=== PATIENT | male | born 1985 | race Caucasian/White ===

== ENCOUNTER 2020-11-26 16:25 | Outpatient (REF) | payer MEDICAID, SELFPAY ==
[2020-11-27 16:28] LABS: COVID-19 RT-PCR UVMMC Result Negative (Negative)
== END 2020-11-26 16:26 | disposition home or self-care (01) ==
LOC: NCHCN 16:25
PROVIDERS: PCP Internal Medicine; Visit Provider Internal Medicine
DX: Z20.822 Contact with and (suspected) exposure to COVID-19 (principal)
CPT/HCPCS: U0003

== ENCOUNTER 2023-05-11 13:13 | Outpatient (REF) | payer MEDICAID, SELFPAY ==
[2023-05-19 12:50] LABS: Amphetamine Negative ng/mL (Cutoff: 25); Amphetamines Interpretation Negative.; MDA (Ecstasy Metabolite) Negative ng/mL (Cutoff: 25); MDMA (Ecstasy) Negative ng/mL (Cutoff: 25); Methamphetamine Negative ng/mL (Cutoff: 25); Phentermine Negative ng/mL (Cutoff: 25); Pseudoephedrine/Ephedrine Negative ng/mL (Cutoff: 25)
== END 2023-05-11 13:14 | disposition home or self-care (01) ==
LOC: NCHCN 13:13
PROVIDERS: PCP Internal Medicine; Visit Provider Nurse Practitioner Family
DX: F90.0 Attention-deficit hyperactivity disorder, predominantly inattentive type (principal)
CPT/HCPCS: 80324; 80360

== ENCOUNTER 2023-06-11 15:41 | Outpatient (REF) | payer MEDICAID, SELFPAY ==
[2023-06-11 21:46] LABS: *AMPHETAMINES SCREEN URINE Negative (Negative); *BARBITURATES SCREEN URINE Negative (Negative); *BENZODIAZEPINES SCREEN URINE Negative (Negative); Cannabinoids THC Negative (Negative); Cocaine Screen,Urine Negative (Negative); METHADONE URINE SCREEN Negative (Negative); OPIATES URINE SCREEN Negative (Negative)
[2023-06-11 21:47] LABS: Tricyclic Antidepressants Negative (Negative)
[2023-06-19 02:29] LABS: Methylphenidate 249 ng/mL (Cutoff: 10); Ritalinic Acid 6227 ng/mL (Cutoff: 50)
== END 2023-06-11 15:42 | disposition home or self-care (01) ==
LOC: NCHCN 15:41
PROVIDERS: PCP Internal Medicine; Visit Provider Nurse Practitioner Family
DX: F90.8 Attention-deficit hyperactivity disorder, other type (principal); Z79.899 Other long term (current) drug therapy; Z51.81 Encounter for therapeutic drug level monitoring
CPT/HCPCS: 80307; 80360

== ENCOUNTER 2023-09-10 16:46 | Outpatient (REF) | payer MEDICAID, SELFPAY ==
--- OUTSIDE RECORDS SUMMARY | 2023-09-10 17:01 | XMS_ITS | Clinical Summary ---
Author Organization [facility] Address [address] [place] [address] Care Team Providers Care Manager Continuous Improvement Name Role Phone Unavailable Primary Care Provider Unavailabl e Social History Tobacco Use Types Packs/Day Years Used Date Smoking Tobacco: Never Assessed Interpersonal Safety Answer Date Record ed Physically Hurt Never 09/25/2019 Verbally Threaten Not on file 09/25/2019 Sex and Gender Information Value Date Recorded Sex Assigned at Not on file Gender Identity Not on file Sexual Orientation Not on file Plan of Treatment Health Maintenance Due Date Last Done Comments Hepatitis C Screen 1985 Hepatitis B Vaccine (1 of 3 - 19+ 3-dose series) 11/17 COVID-19 Vaccine (2022-24 season) 2022 Insurance Payer Benefit Plan / Group Subscriber ID Effective Dates Phone Address Type [place] [id number] 2021-Pres ent [address] [place] [address] [place]
--- OUTSIDE RECORDS SUMMARY | 2023-09-10 17:01 | XMS_ITS | Referral Summary ---
Author Organization [facility] Address [address] [place] [address] Care Team Providers Care Wire Coiner Name Role Phone Unavailable Primary Care Provider [...] Orientation Not on file Plan of Treatment Not on file Insurance Payer Benefit Plan / Group Subscriber ID Effective Dates Phone Address Type [place] [id number] 2021-Pres ent [address] [place] [address] [place]
--- OUTSIDE RECORDS SUMMARY | 2023-09-10 17:01 | XMS_ITS | Continuity of Care Document ---
[facility] Address [address] [place] [address] Assessment Encounter Date Assessment Date Assessment LastModified by Organization Details LastModified Time 09/10/2023 09/10/2023 Flu vaccine: declines Comirnaty: declines Td: current - due 2033 PCV20: declines Hep C screening: declines HIV screening: declines Follow-up in 4 Months. Call or RTO sooner if needs arise. [email or web address] Not available 09/10/2023 15:15:21 Plan of Treatment Reminders Order Date Submit Date Provider Last Modified By Organization Details Last Modified Time Details Appointments Follow Up 2023 02:30P Kiki MCFARLAND Not available Not available Not available Follow Up 30 2023 10:00A Kiki MCFARLAND Not available Not available Not available Lab microalbu min/creat inine, ratio, urine 2023 024 [facility], [address] [place] [address], [id number], 09/10/2023 16:47:24 urinalysi s complete, reflex culture 2023 024 [facility], [address] [place] [address], [phone], 09/10/2023 16:47:53 drug screen, urine 2023 024 [facility], [address] [place] [address], [id number], 09/10/2023 16:05:29 amphetami ne + methamphe tamine, QN, urine 2023 [facility] (Registration ), [address] [place] [address] [place], [address], 09/10/2023 16:00:52 Referral None recorded. Procedures None recorded. Surgeries None recorded. Imaging None recorded. Medication Orders fluticaso ne propionat e 50 mcg/actua tion nasal spray,adama pension 2023 024 [id number], [address], [place], [phone], 09/10/2023 16:06:56 ProAir HFA 90 mcg/actua tion aerosol inhaler 2023 024 [facility] #[id number], [address], [employer] [place], [phone], 09/10/2023 16:06:34 Patient TargetsNo targets recorded. Patient Instructions Encounter Date Encounter Id Patient Instructions Last Modified By Organization Details Last Modified Time 09/10/2023 [id number] starting a weigh t loss plan: care instructions Not available 09/10/2023 15:17:22 diet Not available 2023 15:17:22 exercise Not available 2023 15:17:22 Reason for Referral None Reported. Problems Name Status Onset Date Resolution Date Notes Provider Name and Address Organization Details Recorded Time Anxiety disorder Active 2006 Adriher Ernestine luis [facility] 4 15:15:01 Nicotine dependence Active 2008 Adriher Ernestine luis [facility] 4 15:14:46 Attention deficit hyperactivity disorder, predominantly inattentive type Active 2008 Adriher Ernestine luis [facility] 4 15:14:34 Major depression, single episode [facility] Exercise induced bronchospasm [facility] 2011 [facility] 15:13:40 Cann[facility] dependence [facility] 2010 [facility] 15:13:01 Allergic rhinitis Active 201506/27/2015-Re commend he bent the cat from bedroom. Investigate whether any other environmental triggers might be contributing to symptoms. Given his failure of fluticasone by itself recommend combination antihistamine /steroid nasal inhaler. Hopefully insurance will cover this. Continue saline nasal lavage. If no improvement after 2-3 weeks, consider ENT[facility]allergy referral. [facility] 15[facility]12[facility] Acute pharyngitis Completed 201506/26/2016 Problem Code: J02.9; Problem Code Type: ICD-10; Not Available [facility] 3 04:17:26 Neck pain Completed 201710/01/2017 Problem Code: M54.2; Problem Code Type: ICD-10; Not Available [facility] 3 04:17:26 Attention deficit hyperactivity disorder Completed 200811/18/2022 DEISI BROWN MD [address], [place], [address] [facility] 3 16:40:00 Depressive disorder Completed 200611/18/2022 Not Available [facility] 3 04:17:27 Pain in thoracic spine Completed 201701/12/2022 Problem Code: M54.6; Problem Code Type: ICD-10; Not Available [facility] 3 04:17:27 History of clinical finding in subject Completed 200811/18/2022 Not Available [facility] 3 04:17:27 Asthma Completed 201111/18/2022 Problem Code: 493.90; Problem Code Type: ICD-9; Not Available [facility] 3 04:17:28 Paresthesia Completed 201701/12/2022 Problem Code: R20.2; Problem Code Type: ICD-10; Not Available [facility] 3 04:17:28 Exposure to communicable disease Completed 202012/02/2020 Problem Code: Z20.9; Problem Code Type: ICD-10; Not Available [facility] 3 04:17:29 Attention deficit hyperactivity disorder Active 2022 DEISI BROWN MD [address], [facility] [address] , [facility] 3 16:40:00 Nonulcer dyspepsia Active 2023 JUANJO MCFARLAND APRN [address], [facility] [address] , [facility] 4 08:42:05 Thoracic back pain Active [address], [facility] [address] , [facility] 4 08:43:21 Overweight Active [address], [facility] [address] , [facility] 4 08:51:26 Essential hypertension Active [address], [facility] [address] , [facility] 4 08:52:49 Tobacco dependence in remission Active 2023 JUANJO MCFARLAND APRN [address], [facility] [address] , [facility] 4 09:57:18 Management of compliance with medication regimen Active 2023 FREDA REED, [facility] 4 14:06:46 Gilbert's syndrome Active 2023 JUANJO MCFARLAND, ACCOUNTING SPECIALIST [address], [place], [address] , [facility]. 15:05:02 Problem Notes None recorded. Medical Equipment None Reported. Medications Name Sig Start Date Stop Date Status Note LastModified by Organization Details LastModified Time citalopram 40 mg tablet 1 1/2 qd 01/12 completed Not Available Not Available Not Available methylphen idate 20 mg tablet Take 1 tablet by mouth three times a day 08/24 completed VPMS filled on 01/12 for 28 days Not Available Not Available Not Available meloxicam 15 mg tablet Take 1 tab by mouth daily at bedtime 04/07 completed Not Available Not Available Not Available Zithromax 250 mg tablet 02/06 completed Not Available Not Available Not Available penicillin V potassium 500 mg tablet 1 TAB twice daily 08/12 completed Not Available Not Available Not Available meloxicam 7.5 mg tablet 1 tab twice daily 07/11 completed Not Available Not Available Not Available Ritalin 10 mg tablet TAKE 2 TABLETS BY MOUTH THREE TIMES DAILY active Not Available Not Available No t Available Ilotycin 5 mg/gram (0.5 %) eye ointment APPLY TID 12/16 completed Not Available Not Available Not Available citalopram 20 mg tablet qd 03/13 completed Not Available Not Available Not Available amitriptyl ine 25 mg tablet Take 2 by mouth at bedtime 11/09 completed Not Available Not Available Not Available lorazepam 0.5 mg tablet 1 tab twice daily 10/07 completed Not Available Not Available Not Available mirtazapin e 15 mg tablet 1 tab at bedtime 08/16 completed Not Available Not Available Not Available Nasonex 50 mcg/actuat ion Alden 2 sprays each nostril once daily 06/27 completed Not Available Not Available Not Available BuSpar 15 mg tablet 1 TAB twice daily 08/12 completed Not Available Not Available Not Available fluticason e propionate 50 mcg/actuat ion nasal spray,susp ension 2 sprays each nostril daily 2023 active Not Available Not Available Not Avai lable loratadine 10 mg tablet Take 1 tablet by mouth once a day, seasonal ly active Not Available Not Available No t Available naproxen 500 mg tablet 1TAB bid 05/05 completed Not Available Not Available Not Available nabumetone 500 mg tablet take 1 tab by mouth twice daily as needed for pain 10/01 completed Not Available Not Available Not Available Augmentin 875 mg tablet 1 TAB twice daily 01/02 completed Not Available Not Available Not Available Albuterol Sulfate HFA 2INH qid 2011 active Not Available Not Available Not Avai lable ProAir HFA 90 mcg/actuat ion aerosol inhaler 2 puffs every 6 hours PRN 2023 active Not Available Not Available Not Avai lable Dymista 137 mcg-50 mcg/spray nasal spray 1 spray each nostril twice daily 06/26 completed Not Available Not Available Not Available Vitals Date Recorded Body height Body mass index (BMI) Body weight Body temperature Oxygen saturation Oxygen saturation in Arterial blood by Pulse oximetry Heart rate Systolic blood pressure Diastolic blood pressure Provider Name and Address Organization Details Last Updated DateTime 180.34 cm 27 kg/m2 63209.1 3 g 98.7 [degF] 99 % 99 % 94 /min 158 mm[Hg] 98 mm[Hg] JC SEBASTIAN CMA [facility] 14:43:09 Date Recorded Systolic blood pressure Diastolic blood pressure Provider Name and Address Organization Details Last Updated DateTime 09/10/2023 164 mm[Hg] 94 mm[Hg] JUANJO MCFARLAND, AISHWARYA [address], [place], [address], [facility] 09/10/2023 15:08:57 Social History Question Answer Notes LastModified by Organizat ion Details LastModified Time Tobacco Smoking Status Former Smoker JC SEBASTIAN CMA null, [facility] 05/11/2023 08:37:02 When Did You Quit Smoking? 6-10yearssinc elastcigarett e Information not available 05/11/2023 1) Date Of Last VPMS Check? 09/10/2023 33 Pills On Count Today Information not available 09/10/2023 2) VPMS Findings No Concerns Information not available 09/10/2023 4) Daily MME 0 Information not available 09/10/2023 3) Date Of Last Contract: 05/11/2023 Information not available 09/10/2023 5) Date Of Last UDS 09/10/2023 Information not available 09/10/2023 6) Informed Consent Date 05/11/2023 CSA Information not available 09/10/2023 What Was The Date Of Your Most Recent Tobacco Screening? 05/11/2023 Information not available 05/11/2023 At What Age Did You Start Smoking Tobacco? 19 Information not available 05/11/2023 How Much Tobacco Do You Smoke? 1 PPD Information not available 05/11/2023 Has Tobacco Cessation Counseling Been Provided? No Information not available 05/11/2023 Do You Or Have You Ever Used Any Other Forms Of Tobacco Or Nicotine? No Information not available 05/11/2023 Sex: Male Functional Status None recorded. Mental Status None recorded. Family History Relationship Description Onset Age of this Age Resolved Age Notes Notes:*Problem: Mother: Aliv e, thyroid, brain cyst(?) HTN Father: heart attack in his 60,s Children: Two children, Family History of: Coronary heart disease: yes Diabetes mellitus: yes Alcoholism: yes Mental illness: yes no renal disease Medical History No medical history recorded. Immunizations Vaccine Type Date Status Provider Name and Address Organization Details Recorded Time Tdap 05/18/2023 completed FREDA REED [place] [facility] 05/18/2023 10:11:47 Tdap 05/05/2013 completed Not Available [facility] 03:52:33 Td(adult) unspecified formulation 08/05/2002 completed Not Available [facility] 01/01/2023 03:52:35 Influenza, live, quadrivalent, intranasal 01/21/2015 completed Not Available [facility] 01/01/2023 03:52:35 Past Encounters Encounter ID Performer Location Encounter Start Date Encounter Closed Date Diagnosis/Indication Diagnosis SNOMED-CT Code [id number] JUANOJ MCFARLAND APRN [address] [address] 09/10/2023 14:29:19 09/10/2023 15:23:43 Allergic rhinitis 51684952 Tobacco de pendence in remission 307250731 Attention deficit hyperactivity disorder, predominantly inattentive type 17606918 Anxiety disorder 9476372 06 Exercise i nduced bronchospasm 292976464 Nonulcer dyspepsia 53847 07 Thoracic back pain 10339 8004 Overweight 995493805 Essential hypertension 15907906 Gilbert's syndrome [address] 000 Health Concerns Section Related Observation LastModified by Organization Miya ls LastModified Time None Recorded Concern Status LastModified by Organization Details LastModified Time None Recorded Payers Encounter Date Sequence Insurance Name Policy Number Policy Sales Covered Member ID Sales Member ID Guarantor Name 09/10/2023 1 [facility] (MEDICAID) Conner Valadez [id number] Conner Valadez Notes Date Note Type Note Provider Name and Address Organization Details Recorded Time 09/10/2023 text/html HPI Notes: Is he re for follow-up: Had to put his dog to sleep today, buried him and then came here. 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 Allergic rhinitis. Takes claritin. -- update 09.10.23. Allergies are horrid. Feels more terrible, more bad days than good days. Allergy meds sometimes less effective. Nicotine dependence. Tobacco free for 10+ years. ADHD. Takes methylphenidate 20mg TID. -- update 09.10.23. With his ritalin was only able to get 100 tabs, was supposed to get 168 tabs. the pharmacy did not contact him that this was a short fill. The medication is on back order without an expected fill date. Taking the ritalin, taking 2 tabs TID; sometimes he will only take 1 tab in the evening because worried he may not be able to get his medication. Has done meds in the past; has done extended release methylphenidate, adderall and these have not been effective for him in the past. Anxiety. Depression. Cannabis dependence. managed with coping skills. smokes cannabis daily, as a wind down at the end of the day. uses as a pipe. 2-3 bowls 1.5 grams. Grows his own. -- update 09.10.23. worries about his meds, upset about his dog. Has been a tough month. using his coping skills. Doing breathing exercises. Does not feel meds for his anxiety. Depressed, denies; just grief over dog. increase bills r/t vet care; trying to keep up with bills/ financial struggles, weather has been more difficult with the heat. Exercise induced bronchospasm. Has proair prior to exercise PRN. -- update 09.10.23. using emergency inhaler not even once a week. Denies cough, dyspnea, wheezing. Dyspepsia. Diet managed. Not having any reflux. Thoracic back pain. Neck pain. Declines PT referral. Was encouraged to stay active and stretch. To take APAP PRN. Was encouraged to do anti-inflammatory weight. -- update 09.10.23. overall good in regards to his back pain. Trying to work out and be more active. neck pain is better. Has not needed APAP, rare IBU. Tries to avoid APAP. Overweight. Has been encouraged to do lifestyle management. HTN. Has been encouraged to do DASH diet. -- update 09.10.23. has been using his fitbit and checking his BP routinely. His BP cuff about 2 months ago, felt his BP was much closer to normal . Highest home systolic in June was 129, low of 120. Diastolic in the 80s. Has cut back on salt but has not given it up; using with cooking in less amounts. No longer putting on his cooked food. JUANJO MCFARLAND, ACCOUNTING SPECIALIST [address], [place], [address], [place] [facility]. 09/10/2023 16:05:52
--- OUTSIDE RECORDS SUMMARY | 2023-09-10 17:01 | XMS_ITS | Data Portability ---
Author Organization [place] [facility] [place] [place] [address] Assessment Encounter Date Assessment Date Assessment LastModified by Organization Details LastModified Time 05/11/2023 05/11/2023 Flu vaccine: declines Comirnaty: declines Td: Schedule as nurse visit PCV20: declines Shingrix: n/a RSV: n/a NV in 1 week for tdap. FU in 4 months, call RTO if needs arise. Mr Valadez is agreeable with above plan. Not available 05/11/2023 09:56:42 09/10/2023 09/10/2023 Flu vaccine: declines Comirnaty: declines Td: current - due 2033 PCV20: declines Hep C screening: declines HIV screening: declines Follow-up in 4 Months. Call or RTO sooner if needs arise. [email or web address] Not available 09/10/2023 15:15:21 Plan of Treatment Reminders Order Date Submit Date Provider Last Modified By Organization Details Last Modified Time Details Appointments Follow Up 2023 02:30P Kiki MCFARLAND Not available Not available Not available Follow Up 2023 10:00A Kiki MCFARLAND Not available Not available Not available Lab drug screen, urine 2023 024 [email or web address] [facility], [address] [place] [address], [phone], 05/11/2023 09:34:41 amphetami ne + methamphe tamine, QN, urine 2023 024 [email or web address] [facility] (Registration ), [address], [place], [address], 05/12/2023 08:54:23 drug screen, urine [address], [address] [place] [address], [phone], 06/11/2023 15:45:48 methylphe nidate, QN, urine - Urine sample [address] [facility] (Registration ), [address] [place] [address] [place], [address], 06/21/2023 08:08:00 drug screen, 14 drugs (detectim ed), urine - Urine 2023 024 [facility] (Registration ), [address] [place] [address] [place], [address], 06/18/2023 11:02:07 microalbu min/creat inine, ratio, urine 2023 024 [facility], [address] [place] [address], [phone], 09/10/2023 16:47:24 urinalysi s complete, reflex culture 2023 024 [facility], [address] [place] [address], [phone], 09/10/2023 16:47:53 drug screen, urine [address], [address] [place] [address], [phone], 09/10/2023 16:05:29 amphetami ne + methamphe tamine, QN, urine [address] [facility] (Registration ), [address] [place] [address] [place], [address], 09/10/2023 16:00:52 Referral None recorded. Procedures None recorded. Surgeries None recorded. Imaging None recorded. Medication Orders fluticaso ne propionat e 50 mcg/actua tion nasal spray,adama pension 2023 [facility] [facility][id number], [address], [place], [place], [phone], 09/10/2023 16:06:56 ProAir HFA 90 mcg/actua tion aerosol inhaler 2023 024 [facility] #[id number], [address], [place], [place], [phone], 09/10/2023 16:06:34 Patient TargetsNo targets recorded. Patient Instructions Encounter Date Encounter Id Patient Instructions Last Modified By Organization Details Last Modified Time 05/11/2023 [id number] When You Want to Lose Weight: Care Instructions Not available 05/11/2023 08:55:41 starting a weigh t loss plan: care instructions Not available 05/11/2023 08:55:41 diet Not available 2023 08:55:41 09/10/2023 [id number] starting a weigh t loss plan: care instructions Not available 09/10/2023 15:17:22 diet Not available 2023 15:17:22 exercise Not available 2023 15:17:22 Reason for Referral None Reported. Results Created Date Observation Date Name Description Value Unit Range Abnormal Flag LastModifiedBy Organization Detail LastModifiedTime 05/11/19 24 05/19/2023 AMPHE TAMIN ES CONFI RMATI ON, U amphetamine Negati ve NG/mL cutoff : 25 Not Available [facility] [address] [place], [address] 05/19/2023 14:54:34 05/11/19 24 05/19/2023 AMPHE TAMIN ES CONFI RMATI ON, U phentermine Negati ve NG/mL cutoff : 25 Not Available [address] [place], [address] 05/19/2023 14:54:34 05/11/19 24 05/19/2023 AMPHE TAMIN ES CONFI RMATI ON, U methamphetam ine Negati ve NG/mL cutoff : 25 Not Available [address] [place], [address] 05/19/2023 14:54:34 05/11/19 24 05/19/2023 AMPHE TAMIN ES CONFI RMATI ON, U pseudoephedr ine/ephedrin e Negati ve NG/mL cutoff : 25 Not Available [address] [place], [address] 05/19/2023 14:54:34 05/11/19 24 05/19/2023 AMPHE TAMIN ES CONFI RMATI ON, U MDMA (ecstasy) Negati ve NG/mL cutoff : 25 Not Available [address] [place], [address] 05/19/2023 14:54:34 05/11/19 24 05/19/2023 AMPHE TAMIN ES CONFI RMATI ON, U mda (ecstasy metabolite) Negati ve NG/mL cutoff : 25 Not Available [address] [place], [address] 05/19/2023 14:54:34 05/11/19 24 05/19/2023 AMPHE TAMIN ES CONFI RMATI ON, U amphetamines interpretati on Negati ve. Not Available [address] [place], [address] 05/19/2023 14:54:34 05/11/19 24 05/11/2023 drug scree n, urine Amphetamines : negati ve Not Available [address], [address], 05/11/2023 09:23:10 05/11/19 24 05/11/2023 drug scree n, urine Barbiturates : negati ve Not Available [address], [address], 05/11/2023 09:23:10 05/11/19 24 05/11/2023 drug scree n, urine BUP: negati ve Not Available [address], [address], 05/11/2023 09:23:10 05/11/19 24 05/11/2023 drug scree n, urine Benzodiazepi lety: negati ve Not Available [address], [address], 05/11/2023 09:23:10 05/11/19 24 05/11/2023 drug scree n, urine Cocaine: negati ve Not Available [address], [address], 05/11/2023 09:23:10 05/11/19 24 05/11/2023 drug scree n, urine EDDP (Methadone Metabolite) negati ve Not Available [address], [address], 05/11/2023 09:23:10 05/11/19 24 05/11/2023 drug scree n, urine (MET) Methamphetam ine: negati ve Not Available [address], [address], 05/11/2023 09:23:10 05/11/19 24 05/11/2023 drug scree n, urine MDMA: negati ve Not Available [address], [address], 05/11/2023 09:23:10 05/11/19 24 05/11/2023 drug scree n, urine MTD (Methadone): negati ve Not Available [address], [address], 05/11/2023 09:23:10 05/11/19 24 05/11/2023 drug scree n, urine [id number] (Opiate): negati ve Not Available [address], [address], 05/11/2023 09:23:10 05/11/19 24 05/11/2023 drug scree n, urine OXY (Oxycodone): negati ve Not Available [address], [address], 05/11/2023 09:23:10 05/11/19 24 05/11/2023 drug scree n, urine TCA: negati ve Not Available [address], [address], 05/11/2023 09:23:10 05/11/19 24 05/11/2023 drug scree n, urine THC: positi ve Not Available [address], [address], 05/11/2023 09:23:10 06/11/19 24 06/11/2023 URINE DRUG SCREE N ([facility] ) methadone Negati ve negati ve Not Available [address] [place], [address] 06/11/2023 21:50:01 06/11/19 24 06/11/2023 URINE DRUG SCREE N ([facility] ) benzodiazepi lety Negati ve negati ve Not Available [address] [place], [address] 06/11/2023 21:50:01 06/11/19 24 06/11/2023 URINE DRUG SCREE N ([facility] ) cocaine Negati ve negati ve Not Available [address] [place], [address] 06/11/2023 21:50:01 06/11/19 24 06/11/2023 URINE DRUG SCREE N ([facility] ) amphetamines Negati ve negati ve Not Available [address] [place], [address] 06/11/2023 21:50:01 06/11/19 24 06/11/2023 URINE DRUG SCREE N ([facility] ) tetrahydroca nnabinol Negati ve negati ve Not Available [address] [place], [address] 06/11/2023 21:50:01 06/11/19 24 06/11/2023 URINE DRUG SCREE N ([facility] ) opiates Negati ve negati ve Not Available [address] [place], [address] 06/11/2023 21:50:01 06/11/19 24 06/11/2023 URINE DRUG SCREE N ([facility] ) barbiturates Negati ve negati ve Not Available [address] [place], [address] 06/11/2023 21:50:01 06/11/19 24 06/11/2023 URINE DRUG SCREE N ([facility] ) tricyclic antidepressa nts Negati ve negati ve Not Available [address] [place], [address] 06/11/2023 21:50:01 06/11/19 24 06/19/2023 METHY LPHEN IDATE METAB OLITE ,U methylphenid ate 249 NG/mL cutoff : 10 Not Available [address] [place], [address] 06/20/2023 11:58:02 06/11/19 24 06/19/2023 METHY LPHEN IDATE METAB OLITE ,U ritalinic acid 6227 NG/mL cutoff : 50 Not Available [address] [place], [address] 06/20/2023 11:58:02 06/11/19 24 06/11/2023 drug scree n, urine Amphetamines : negati ve Not Available [address], [address], 06/11/2023 14:08:52 06/11/19 24 06/11/2023 drug scree n, urine Barbiturates : negati ve Not Available [address], [address], 06/11/2023 14:08:52 06/11/19 24 06/11/2023 drug scree n, urine BUP: negati ve Not Available [address], [address], 06/11/2023 14:08:52 06/11/19 24 06/11/2023 drug scree n, urine Benzodiazepi lety: negati ve Not Available [address], [address], 06/11/2023 14:08:52 06/11/19 24 06/11/2023 drug scree n, urine Cocaine: negati ve Not Available [address], [address], 06/11/2023 14:08:52 06/11/19 24 06/11/2023 drug scree n, urine EDDP (Methadone Metabolite) negati ve Not Available [address], [address], 06/11/2023 14:08:52 06/11/19 24 06/11/2023 drug scree n, urine (MET) Methamphetam ine: negati ve Not Available [address], [address], 06/11/2023 14:08:52 06/11/19 24 06/11/2023 drug scree n, urine MDMA: negati ve Not Available [address], [address], 06/11/2023 14:08:52 06/11/19 24 06/11/2023 drug scree n, urine MTD (Methadone): negati ve Not Available [address], [address], 06/11/2023 14:08:52 06/11/19 24 06/11/2023 drug scree n, urine [id number] (Opiate): negati ve Not Available [address], [address], 06/11/2023 14:08:52 06/11/19 24 06/11/2023 drug scree n, urine OXY (Oxycodone): negati ve Not Available [address], [address], 06/11/2023 14:08:52 06/11/19 24 06/11/2023 drug scree n, urine TCA: negati ve Not Available [address], [address], 06/11/2023 14:08:52 06/11/19 24 06/11/2023 drug scree n, urine THC: positi ve Not Available [address], [address], 06/11/2023 14:08:52 06/11/19 24 06/11/2023 drug scree n, urine Temperature: 92 Not Available [address], [address], 06/11/2023 14:08:52 Result Notes None recorded. Problems Name Status Onset Date Resolution Date Notes Provider Name and Address Organization Details Recorded Time Anxiety disorder Active 2006 Adriher Ernestine luis [facility] 4 15:15:01 Nicotine dependence Active 2008 Adri luis [facility] 4 15:14:46 Attention deficit hyperactivity disorder, predominantly inattentive type Active 2008 Adri luis [facility] 4 15:14:34 Major depression, single episode [facility] 15:14[facility]07 Exercise induced bronchospasm Active 2011 [facility] 15:13:40 Cannabis dependence Active 2010 Adriher Sinha [facility] 4 15:13:01 Allergic rhinitis Active 201506/27/2015-Re commend he bent the cat from bedroom. Investigate whether any other environmental triggers might be contributing to symptoms. Given his failure of fluticasone by itself recommend combination antihistamine /steroid nasal inhaler. Hopefully insurance will cover this. Continue saline nasal lavage. If no improvement after 2-3 weeks, consider ENT/allergy referral. Adriher Sinha [facility] 4 15:12:22 Acute pharyngitis Completed 201506/26/2016 Problem Code: J02.9; Problem Code Type: ICD-10; Not Available [facility] 3 04:17:26 Neck pain Completed 201710/01/2017 Problem Code: M54.2; Problem Code Type: ICD-10; Not Available [facility] 3 04:17:26 Attention deficit hyperactivity disorder Completed 200811/18/2022 DEISI BROWN MD [address], [place], [address] , [facility] 3 16:40:00 Depressive disorder Completed 200611/18/2022 Not Available [facility] 3 04:17:27 Pain in thoracic spine Completed 201701/12/2022 Problem Code: M54.6; Problem Code Type: ICD-10; Not Available [facility] 3 04:17:27 History of clinical finding in subject Completed 200811/18/2022 Not Available [facility] 3 04:17:27 Asthma Completed 201111/18/2022 Problem Code: 493.90; Problem Code Type: ICD-9; Not Available [facility] 3 04:17:28 Paresthesia Completed 201701/12/2022 Problem Code: R20.2; Problem Code Type: ICD-10; Not Available [facility] 3 04:17:28 Exposure to communicable disease Completed 202012/02/2020 Problem Code: Z20.9; Problem Code Type: ICD-10; Not Available [facility] 3 04:17:29 Attention deficit hyperactivity disorder Active 2022 DEISI BROWN MD [address], [place], [address] , [facility] 3 16:40:00 Nonulcer dyspepsia Active 2023 JUANJO MCFARLAND APRN [address], [facility] [address] , [facility] 4 08:42:05 Thoracic back pain Active 2023 JUANJO MCFARLAND APRN [address], [place], [address] , [facility] 4 08:43:21 Overweight Active 2023 JUANJO MCFARLAND APRN [address], [place], [address] , [facility] 4 08:51:26 Essential hypertension Active 2023 JUANJO MCFARLAND APRN [address], [place], [address] , [facility] 4 08:52:49 Tobacco dependence in remission Active 2023 JUANJO MCFARLAND APRN [address], [place], [address] , [facility] 4 09:57:18 Management of compliance with medication regimen Active 2023 FREDA REED, [facility] 4 14:06:46 Gilbert's syndrome Active 2023 JUANJO MCFARLAND, [employer] [address], [place], [address] , [facility] 4 15:05:02 Problem Notes None recorded. Medical Equipment [...] Available Not Available Nasonex 50 mcg/actuat ion [place] 2 sprays each nostril once daily 06/27 [...] Available Not Available Vitals Date Recorded Body weight Body mass index (BMI) Body height Oxygen saturation Oxygen saturation in Arterial blood by Pulse oximetry Heart rate Systolic blood pressure Diastolic blood pressure Provider Name and Address Organization Details Last Updated DateTime 4 53804.3 9 g 27.7 kg/m2 180.34 cm 98 % 98 % 72 /min 135 mm[Hg] 88 mm[Hg] JC SEBASTIAN CMA [facility] 08:33:43 Date Recorded Systolic blood pressure Diastolic blood pressure Provider Name and Address Organization Details Last Updated DateTime 05/11/2023 136 mm[Hg] 88 mm[Hg] JUANJO MCFARLAND APRN [address], [place], [address], [facility] 05/11/2023 08:55:34 Date Recorded Body height Body mass index (BMI) Body weight Body temperature Oxygen saturation Oxygen saturation in Arterial blood by Pulse oximetry Heart rate Systolic blood pressure Diastolic blood pressure Provider Name and Address Organization Details Last Updated DateTime 180.34 cm 27 kg/m2 34998.1 3 g 98.7 [degF] 99 % 99 % 94 /min 158 mm[Hg] 98 mm[Hg] JC SEBASTIAN CMA [facility] 14:43:09 Date Recorded Systolic blood pressure Diastolic blood pressure Provider Name and Address Organization Details Last Updated DateTime 09/10/2023 164 mm[Hg] 94 mm[Hg] JUANJO MCFARLAND APRN [address], [place], [address], [facility] 09/10/2023 15:08:57 Social History Question Answer Notes LastModified by Organizat ion Details LastModified Time Tobacco Smoking Status Former Smoker JC SEBASTIAN CMA null, [facility] 05/11/2023 08:37:02 When Did You Quit Smoking? [...] this Age Resolved Age Notes Notes:*Problem: Mother: Krystal e, thyroid, brain cyst(?) HTN Father: heart attack in his 60,s Children: Two children, Family History of: Coronary heart disease: yes Diabetes mellitus: yes Alcoholism: yes Mental illness: yes no renal disease Medical History No medical history recorded. Immunizations Vaccine Type Date Status Provider Name and Address Organization Details Recorded Time Tdap 05/18/2023 completed KASEY GANT CMA [facility], [place] - [facility] 05/18/2023 10:11:47 Tdap 05/05/2013 completed Not Available [facility] 03:52:33 Td(adult) unspecified formulation 08/05/2002 completed Not Available [facility] 01/01/2023 03:52:35 Influenza, live, quadrivalent, intranasal 01/21/2015 completed Not Available [facility] 01/01/2023 03:52:35 Past Encounters Encounter ID Performer Location Encounter Start Date Encounter Closed Date Diagnosis/Indication Diagnosis SNOMED-CT Code [id number] JUANJO MCFARLAND [address] [address] 05/11/2023 08:25:55 05/11/2023 09:16:07 Allergic rhinitis 76532113 Attention deficit hyperactivity disorder, predominantly inattentive type 23029892 Anxiety disorder 2532869 06 Exercise i nduced bronchospasm 416724789 Nonulcer dyspepsia 63587 07 Thoracic back pain 87153 8004 Overweight 535268370 Essential hypertension 58390362 Tobacco de pendence in remission 312526292 [id number] KASEY GANT [address] [address] 05/18/2023 09:55:47 05/18/2023 10:11:59 Active or passive immunization 521554969 [id number] KASEY GANT [address] [address] 06/11/2023 14:30:01 06/11/2023 15:20:22 Attention deficit hyperactivity disorder 427985491 [id number] JUANJO MCFARLAND [address] [place] [address] 09/10/2023 14:29:19 09/10/2023 15:23:43 Allergic rhinitis 15281018 Tobacco de pendence in remission 929187770 Attention deficit hyperactivity disorder, predominantly inattentive type 75122525 Anxiety disorder 8250448 06 Exercise i nduced bronchospasm 952472607 Nonulcer dyspepsia 89327 07 Thoracic back pain 94048 8004 Overweight 510589502 Essential hypertension 03193595 Gilbert's syndrome 12492 000 Health Concerns Section Related Observation LastModified by Organization Detai ls LastModified Time None Recorded Concern Status LastModified by Organization Details LastModified Time None Recorded Advance Directives Directive None Recorded Payers Encounter Date Sequence Insurance Name Policy Number Policy Sales Covered Member ID Sales Member ID Guarantor Name 05/11/2023 1 [employer] ([employer]ICA[employer]) Conner J Rory [id number] Conner Treviño Rory 05/18/2023 1 [employer] ([employer]) Conner Treviño Ceiba [id number] Conner Treviño Rory 06/11/2023 1 [employer] (MEDICA[employer]) Conner Treviño Ceiba [id number] Conner Kamila Ceiba 09/10/2023 1 [employer] ([employer]ICA[employer]) Conner Treviño Ceiba [id number] Conner Treviño Rory Notes Date Note Type Note Provider Name and Address Organization Details Recorded Time 05/11/2023 text/html HPI Notes: Is he re for follow-up: Allergic rhinitis. Takes claritin. Nicotine dependence. ADHD. Takes methylphenidate 20mg TID. Last seen in the office was 12/2021. in past has done natural medications. Anxiety. Depression. Cannabis dependence. managed with coping skills. smokes cannabis daily, as a wind down at the end of the day. uses as a pipe. 2-3 bowls 1.5 grams. Grows his own. Exercise induced bronchospasm. Has proair prior to exercise PRN. JUANJO MCFARLAND APRN [address], [place], [address], [facility]. 05/11/2023 12:14:07 09/10/2023 text/html HPI Notes: Is he re [...] putting on his cooked food. JUANJO MCFARLAND, [employer] [address], [place], [address], [facility]. 09/10/2023 16:05:52
--- OUTSIDE RECORDS SUMMARY | 2023-09-10 17:01 | XMS_ITS | Continuity of Care Document ---
Author Organization [place] - [facility] Address [address] [place] [address] Assessment No assessment recorded. Plan of Treatment Reminders Order Date Submit Date Provider Last Modified By Organization Details Last Modified Time Details Appointments Follow Up 2023 02:30P Kiki MCFARLAND Not available Not available Not available Follow Up 2023 10:00A Kiki MCFARLADN Not available Not available Not available Lab drug screen, urine [email or web address] [place] [address], [address] [place] [address], [id number], 06/11/2023 15:45:48 methylph enidate, QN, urine - Urine sample 2023 024 [email or web address] [facility] (Registration ), [address] [place] [address] [place], [address], 06/21/2023 08:08:00 drug screen, 14 drugs (detecti med), urine - Urine 2023 024 [email or web address] [facility] (Registration ), [address] [place] [address] [place], [address], 06/18/2023 11:02:07 Referral None recorded . Procedures None recorded . Surgeries None recorded . Imaging None recorded . Medication Orders None recorded . Patient TargetsNo targets recorded. Patient InstructionsNo instructions recorded. Reason for Referral None Reported. Results Created Date Observation Date Name Description Value Unit Range Abnormal Flag LastModifiedBy Organization Detail LastModifiedTime 06/11/19 24 06/11/2023 drug scree n, urine Amphetamines : negati ve Not Available [address], [address], 06/11/2023 14:08:52 06/11/19 24 06/11/2023 drug scree n, urine Barbiturates : negati ve Not Available [address], [address], 06/11/2023 14:08:52 06/11/19 24 06/11/2023 drug scree n, urine BUP: negati ve Not Available [address], [address], 06/11/2023 14:08:52 06/11/19 24 06/11/2023 drug scree n, urine Benzodiazepi lety: negati ve Not Available [address], [address], 06/11/2023 14:08:52 06/11/19 24 06/11/2023 drug scree n, urine Cocaine: negati ve Not Available [address], [address], 06/11/2023 14:08:52 06/11/19 24 06/11/2023 drug scree n, urine EDDP (Methadone Metabolite) negati ve Not Available [address], [address], 06/11/2023 14:08:52 06/11/19 24 06/11/2023 drug scree n, urine (MET) Methamphetam ine: negati ve Not Available [address], [address], 06/11/2023 14:08:52 06/11/19 24 06/11/2023 drug scree n, urine MDMA: negati ve Not Available [address], [address], 06/11/2023 14:08:52 06/11/19 24 06/11/2023 drug scree n, urine MTD (Methadone): negati ve Not Available [address], [address], 06/11/2023 14:08:52 06/11/19 24 06/11/2023 drug scree n, urine Gux067 (Opiate): negati ve Not Available [address], [address], 06/11/2023 14:08:52 06/11/19 24 06/11/2023 drug scree n, urine OXY (Oxycodone): negati ve Not Available [address], [address], 06/11/2023 14:08:52 06/11/19 24 06/11/2023 drug scree n, urine TCA: negati ve Not Available [address], [address], 06/11/2023 14:08:52 06/11/19 24 06/11/2023 drug scree n, urine THC: positi ve Not Available [address], [address], 06/11/2023 14:08:52 06/11/19 24 06/11/2023 drug scree n, urine Temperature: 92 Not Available [address], [address], 06/11/2023 14:08:52 Result Notes None recorded. Problems Name Status Onset Date Resolution Date Notes Provider Name and Address Organization Details Recorded Time Anxiety disorder Active 2006 [place] Renteria [facility] 03/15/202 4 15:15:01 Nicotine dependence Active 2008 Adriher Sinha [facility] 4 15:14:46 Attention deficit hyperactivity disorder, predominantly inattentive type Active 2008 [facility] Ernestine [facility] 4 15:14:34 Major depression, single episode Active 2006 [facility] Ernestine [facility] 4 15:14:07 Exercise induced bronchospasm Active 2011 [facility] Ernestine [facility] 4 15:13:40 Cannabis dependence Active 2010 [facility] Ernestine [facility] 4 15:13:01 Allergic rhinitis Active 201506/27/2015-Re commend he bent the cat from bedroom. Investigate whether any other environmental triggers might be contributing to symptoms. Given his failure of fluticasone by itself recommend combination antihistamine /steroid nasal inhaler. Hopefully insurance will cover this. Continue saline nasal lavage. If no improvement after 2-3 weeks, consider ENT/allergy referral. Adriher Sinha [facility] 4 15:12:22 Acute pharyngitis Completed 201506/26/2016 Problem Code: J02.9; Problem Code Type: ICD-10; Not Available [facility] 3 04:17:26 Neck pain Completed 201710/01/2017 Problem Code: M54.2; Problem Code Type: ICD-10; Not Available [facility] 3 04:17:26 Attention deficit hyperactivity disorder Completed 200811/18/2022 DEISI BROWN MD [address], [place], [address] , [facility] 3 16:40:00 Depressive disorder Completed 200611/18/2022 Not Available [facility] 3 04:17:27 Pain in thoracic spine Completed 201701/12/2022 Problem Code: M54.6; Problem Code Type: ICD-10; Not Available [facility] 3 04:17:27 History of clinical finding in subject Completed 200811/18/2022 Not Available [facility] 3 04:17:27 Asthma Completed 201111/18/2022 Problem Code: 493.90; Problem Code Type: ICD-9; Not Available [facility] 3 04:17:28 Paresthesia Completed 201701/12/2022 Problem Code: R20.2; Problem Code Type: ICD-10; Not Available [facility] 3 04:17:28 Exposure to communicable disease Completed 202012/02/2020 Problem Code: Z20.9; Problem Code Type: ICD-10; Not Available [facility] 3 04:17:29 Attention deficit hyperactivity disorder Active 2022 DEISI BROWN MD [address], [place], [address] , [facility] 3 16:40:00 Nonulcer dyspepsia Active 2023 JUANJO MCFARLAND APRN [address], [place], [address] , [facility] 4 08:42:05 Thoracic back pain Active 2023 JUANJO MCFARLAND APRN [address], [place], [address] , [facility] 4 08:43:21 Overweight Active 2023 JUANJO MCFARLAND APRN [address], [place], [address] , [facility] 4 08:51:26 Essential hypertension Active 2023 JUANJO MCFARLAND APRN [address], [place], [address] , [facility] 4 08:52:49 Tobacco dependence in remission Active 2023 JUANJO MCFARLAND APRN [address], [place], [address] , [facility] 4 09:57:18 Management of compliance with medication regimen Active 2023 KASEY GANT CMA [facility], [facility] 4 14:06:46 Gilbert's syndrome Active 2023 JUANJO MCFARLAND APRN [address], [place], [address] , [facility] 4 15:05:02 Problem Notes None recorded. Medical [...] Available Not Available Nasonex 50 mcg/actuat ion Dwarf 2 sprays each nostril once daily 06/27 [...] Not Available Not Available Not Available Vitals None Recorded Social History Question Answer Notes LastModified by Organizat ion Details LastModified Time Tobacco Smoking Status Former Smoker JC SEBASTIAN CMA [facility], [place] - [facility]. 05/11/2023 08:37:02 When Did You Quit Smoking? [...] Recorded Time Tdap 05/18/2023 completed KASEY GANT [facility], [place] - [facility] 05/18/2023 10:11:47 Tdap 05/05/2013 completed Not Available [facility] 03:52:33 Td(adult) unspecified formulation 08/05/2002 completed Not Available [facility] 01/01/2023 03:52:35 Influenza, live, quadrivalent, intranasal 01/21/2015 completed Not Available [facility] 01/01/2023 03:52:35 Past Encounters Encounter ID Performer Location Encounter Start Date Encounter Closed Date Diagnosis/Indication Diagnosis SNOMED-CT Code [id number] JUANJO MCFARLAND APRN [address] [address] 05/11/2023 08:25:55 05/11/2023 09:16:07 Allergic rhinitis 62242375 Attention deficit hyperactivity disorder, predominantly inattentive type 37096907 Anxiety disorder 2009900 06 Exercise i nduced bronchospasm 509128191 Nonulcer dyspepsia 95031 07 Thoracic back pain 09440 8004 Overweight 205673383 Essential hypertension 77992699 Tobacco de pendence in remission 524967015 [id number] KASEYEMILIANO PARKS[address] [address] 05/18/2023 09:55:47 05/18/2023 10:11:59 Active or passive immunization 295959976 [id number] KASEYEMILIANO PARKS[address] [address] 06/11/2023 14:30:01 06/11/2023 15:20:22 Attention deficit hyperactivity disorder 314415204 Health Concerns Section Related Observation LastModified by Organization Detai ls LastModified Time None Recorded Concern Status LastModified by Organization Details LastModified Time None Recorded Payers Encounter Date Sequence Insurance Name Policy Number Policy Sales Covered Member ID Sales Member ID Guarantor Name 06/11/2023 1 [facility] (MEDICAID) Conner Valadez [id number] Conner Valadez
--- OUTSIDE RECORDS SUMMARY | 2023-09-10 17:01 | XMS_ITS | Encounter Summary ---
Author Organization [facility] Address [address] [place] [address] Care Team Providers Care Software Quality Automation Engineer Name Role Phone Unavailable Primary Care Provider Unavailabl e Encounter Details Date Type Department Care Team (Late st Contact Info) Description 11/26/2020 Lab Requisition [facility] Pathology & Laboratory Medicine - [facility] [address] [place] [address] Outr Resulting Lab, Provider Social History Tobacco Use Types Packs/Day Years Used Date Smoking Tobacco: Never Assessed Interpersonal Safety Answer Date Record ed Physically Hurt Never 09/25/2019 Verbally Threaten Not on file 09/25/2019 Sex and Gender Information Value Date Recorded Sex Assigned at Not on file Gender Identity Not on file Sexual Orientation Not on file documented as of this encounter Plan of Treatment Not on file documented as of this encounter Procedures Procedure Name Priority Date/Time Associated Diagnosis Comments ZZCOVID-19 TEST [facility] PCR Today 11/26/2020 10:20 EDT COVID-19 TESTING Routine 11/26/2020 10:2 0 EDT documented in this encounter Results * COVID-19 TEST [facility] (11/26/2020 10:20 EDT) Swab ENTIRE NASOPHARYNX / Unknown 11/26/2020 10:20 EDT 11/26/2020 21:32 EDT Provider Outr Resulting Lab MICROBIOLOGY - GENERAL ORDERABLES [facility] [address] [place] [address] * COVID-19 TESTING (11/26/2020 10:20 EDT) COVID-19 rt-PCR Result Negative Negative 11/27/2020 16:22 EDT [facility] Comment: This test has not been FDA cleared or approved. This test has been authorized by FDA under an EUA for use by authorized laboratories. This test has been authorized only for detection of nucleic acid from 2019-nCoV, not for any other viruses or pathogens. This test is only authorized for the duration of the declaration that circumstances exist justifying the authorization of emergency use of in vitro diagnostic tests for detection and/or diagnosis of 2019-nCoV under section 564(b)(1) of Act, 21 U.S.C ?? 360bbb-3(b) (1), unless the authorization is terminated or revoked sooner. Negative results do not preclude 2019-nCoV infection and should not be used as the sole basis for treatment or other patient management decisions. Negative results must be combined with clinical observations, patient history, and epidemiological information. This test was developed and its performance characteristics determined by [facility]. It has not been cleared or approved by the US Food and Drug Administration. FDA does not require this test to go through premarket FDA review. This test is used for clinical purposes. It should not be regarded as investigational or for research. This laboratory is certified under the Clinical Laboratory Improvement Amendments (CLIA) as qualified to perform high complexity clinical laboratory testing. This test is based on the CDC COVID-19 Emergency Use Authorization (EUA) assay, with minor modification as defined by the FDA Performed on the Yasto 7 Flex RT-PCR System. Performing Lab [facility] 11/27/2020 16:22 EDT [facility] Swab 11/26/2020 10:2 0 EDT 11/26/2020 21:32 EDT Provider Outr Resulting Lab MICROBIOLOGY - GENERAL ORDERABLES [facility] [address] [place] [address] documented in this encounter Visit Diagnoses Not on filedocumented in this encounter
[2023-09-10 21:18] LABS: Bilirubin Negative (Negative); Blood Negative (Negative); Clarity Clear (Clear); Glucose Negative (Negative); Ketones Trace mg/dL (Negative); Leukocyte Esterase Negative (Negative); Nitrite Negative (Negative); Specific Gravity 1.025 (1.005-1.025)
[2023-09-10 21:47] LABS: Microalb ug/mg Crea 4.5 ug/mg Cr
[2023-09-15 10:53] LABS: Amphetamine Negative ng/mL (Cutoff: 25); Amphetamines Interpretation Negative.; MDA (Ecstasy Metabolite) Negative ng/mL (Cutoff: 25); MDMA (Ecstasy) Negative ng/mL (Cutoff: 25); Methamphetamine Negative ng/mL (Cutoff: 25); Phentermine Negative ng/mL (Cutoff: 25); Pseudoephedrine/Ephedrine Negative ng/mL (Cutoff: 25)
== END 2023-09-10 16:47 | disposition home or self-care (01) ==
LOC: NCHCN 16:46
PROVIDERS: PCP Internal Medicine; Visit Provider Nurse Practitioner Family
DX: F90.0 Attention-deficit hyperactivity disorder, predominantly inattentive type (principal); I10 Essential (primary) hypertension
CPT/HCPCS: 80324; 81003; 82043; 82570

== ENCOUNTER 2024-03-13 12:37 | Outpatient (REF) | payer MEDICAID, SELFPAY ==
[2024-03-18 07:37] LABS: Methylphenidate 550 ng/mL (Cutoff: 10)
== END 2024-03-13 12:38 | disposition home or self-care (01) ==
LOC: NCHCN 12:37
PROVIDERS: PCP Internal Medicine; Visit Provider Nurse Practitioner Family
DX: Z79.891 Long term (current) use of opiate analgesic (principal); F90.0 Attention-deficit hyperactivity disorder, predominantly inattentive type
CPT/HCPCS: 80360

== ENCOUNTER 2024-06-12 16:02 | Outpatient (REF) | payer MEDICAID, SELFPAY ==
[2024-06-15 14:05] LABS: Methylphenidate 71 ng/mL (Cutoff: 10); Ritalinic Acid 8718 ng/mL (Cutoff: 50)
== END 2024-06-12 16:03 | disposition home or self-care (01) ==
LOC: NCHCN 16:02
PROVIDERS: PCP Internal Medicine; Visit Provider Nurse Practitioner Family
DX: F90.0 Attention-deficit hyperactivity disorder, predominantly inattentive type (principal); Z79.899 Other long term (current) drug therapy
CPT/HCPCS: 80360

== ENCOUNTER 2024-09-11 15:41 | Outpatient (REF) | payer SELFPAY ==
[2024-09-11 15:38] LABS: Glucose Negative (Negative)
[2024-09-11 16:24] LABS: Microalb ug/mg Crea 4.0 ug/mg Cr
== END 2024-09-11 15:42 | disposition home or self-care (01) ==
LOC: NCHCN 15:41
PROVIDERS: PCP Internal Medicine; Visit Provider Nurse Practitioner Family
DX: I10 Essential (primary) hypertension (principal); F90.0 Attention-deficit hyperactivity disorder, predominantly inattentive type; Z79.899 Other long term (current) drug therapy
CPT/HCPCS: 80360; 81003; 82043; 82570